=== PATIENT | male | born 1965 | race Caucasian/White ===

== ENCOUNTER 2019-03-18 18:52 | Emergency (ER) | payer OTHER ==
[2019-03-18 18:56] VITALS: TEMP 98.3; BMI 25.0
[2019-03-18] MEDS ORDERED: ALBUTEROL SO4 2.5/IPRATROPIUM 0.5 INH SOL 3 ML VIAL.NEB. NEB ONE ×2 (20:30→20:37)
[2019-03-18] MEDS ORDERED: ALBUTEROL SO4 0.083% IH SOL 2.5 MG/3 ML VIAL.NEB. NEB ONE ×2 (20:30→20:37)
[2019-03-18] MEDS ORDERED: methylPREDNISolone NA SUCC 125 MG/2 ML VIAL IVPUSH ONE (20:32)
[2019-03-18] MEDS ORDERED: methylPREDNISolone NA SUCC 125 MG/2 ML VIAL ONE (20:37)
[2019-03-18 20:59] LABS: BASO % 0.8 % (0-2.0); EOS % 5.6 % (0-4.5); HEMATOCRIT 44.4 % (35.4-49); HEMOGLOBIN 15.1 GM/dL (11.7-16.9); LYMPH % 22.6 % (8-40); MCH 31.9 pg (25.7-33.7); MCHC 33.9 g/dl (32.0-35.9); MEAN CELL VOLUME 94.2 fl (80-96); MONO % 10.7 % (3.8-10.2); NEUT % 60.3 % (42.8-82.8); PLATELET COUNT 202 K/MM3 (134-434); RBC 4.71 M/mm3 (4.00-5.60); RDW 14.4 % (11.9-15.9); WHITE BLOOD COUNT 9.4 K/mm3 (4.0-10.0)
[2019-03-18 21:02] LABS: PH,URINE 5.5 (5.0-8.0); URINE APPEARANCE CLEAR; URINE BILIRUBIN NEGATIVE (NEGATIVE); URINE COLOR YELLOW; URINE GLUCOSE (UA) NEGATIVE (NEGATIVE); URINE KETONE NEGATIVE (NEGATIVE); URINE LEUK ESTERASE NEGATIVE (NEGATIVE); URINE NITRITE NEGATIVE (NEGATIVE); URINE PROTEIN NEGATIVE (NEGATIVE); URINE UROBILINOGEN 0.2 mg/dL (0.2-1.0)
[2019-03-18 21:25] LABS: N-TERMINAL BNP 300.5 pg/ml (5-125)
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
[2019-03-18 22:00] LABS: ALBUMIN 3.7 g/dl (3.4-5.0); ALK PHOS 72 U/L (45-117); ANION GAP 9 MMOL/L (8-16); BILIRUBIN,TOTAL 0.4 mg/dL (0.2-1); BLOOD UREA NITROGEN 17.4 mg/dL (7-18); CALCIUM 8.5 mg/dL (8.5-10.1); CHLORIDE 108 mmol/L (98-107); CO2 25 mmol/L (21-32); CREATININE 0.8 mg/dL (0.55-1.3); GLUCOSE,RANDOM 83 mg/dL (74-106); POTASSIUM 4.6 mmol/L (3.5-5.1); SGOT/AST 17 U/L (15-37); SGPT/ALT 15 U/L (13-61); SODIUM 142 mmol/L (136-145)
[2019-03-18 22:06] VITALS: BP 143/63
[2019-03-18 22:34] VITALS: PULSE 60
--- NOTE | 2019-03-19 09:57 | EKG ---
Test Reason : Blood Pressure : / mmHG Vent. Rate : 063 BPM Atrial Rate : 063 BPM P-R Int : 120 ms QRS Dur : 088 ms QT Int : 432 ms P-R-T Axes : 010 042 062 degrees QTc Int : 442 ms SINUS RHYTHM WITH OCCASIONAL PREMATURE VENTRICULAR COMPLEXES NONSPECIFIC ST ABNORMALITY ABNORMAL ECG NO PREVIOUS ECGS AVAILABLE Confirmed by ZAY POND, ZAIN ([id number]) on 03/19/2019 9:57:21 AM Referred By: Confirmed By:ZAIN COLLAZO MD
== END 2019-03-18 23:00 | disposition home or self-care (01) ==
LOC: JER 18:52
PROC: 3E0F7GC Introduction of Other Therapeutic Substance into Respiratory Tract, Via Natural or Artificial Opening (ICD-10-PCS; principal; 2019-03-18)
PROC: 3E0F7GC Introduction of Other Therapeutic Substance into Respiratory Tract, Via Natural or Artificial Opening (ICD-10-PCS; 2019-03-18)
DX: J40 Bronchitis, not specified as acute or chronic (principal)
CPT/HCPCS: 36415; 71046-TC-FY; 80053; 81003; 82550; 82553; 83880; 84484; 85025; 93005; 93010; 94640; 99282-25

== ENCOUNTER 2019-04-05 13:57 | Emergency (ER) | payer OTHER ==
--- NOTE | 2019-04-05 14:02 | PDOC ---
Rapid Medical Evaluation Time Seen by Provider: 04/05/19 14:01 Medical Evaluation: Allergies Allergy/AdvReac Type Severity Reaction Status Date / Time No Known Allergies Allergy Verified 03/18/19 18:56 04/05/19 14:02 I have performed a brief in-person evaluation of this patient. The patient presents with a chief complaint of: Difficulty breathing and cough ( worse when he lays down) for 2 weeks. He was in the ED 2 wks ago, finished a course of prednisone and have been using a pump without improvement. Also c/o chest pain since last night. Stopped smoking 2 wks ago. Pertinent physical exam findings: Tachypnea with mild resp. distress. O2sat 98% I have ordered the following: EKG, CBC, CMP, cardiac enzymes, CXR The patient will proceed to the ED for further evaluation. 04/05/19 14:03 Discharge Disposition - Diagnosis Shortness of breath - Referrals - Patient Instructions - Post Discharge Activity
[2019-04-05 14:05] VITALS: TEMP 98.5; BMI 24.4
[2019-04-05] MEDS ORDERED: ALBUTEROL SO4 2.5/IPRATROPIUM 0.5 INH SOL 3 ML VIAL.NEB. NEB ONE ×4 (15:04→15:20)
[2019-04-05 15:14] LABS: BASO % 1.1 % (0-2.0); EOS % 4.6 % (0-4.5); HEMATOCRIT 41.6 % (35.4-49); HEMOGLOBIN 14.1 GM/dL (11.7-16.9); LYMPH % 25.2 % (8-40); MCH 32.1 pg (25.7-33.7); MEAN CELL VOLUME 94.4 fl (80-96); MEAN PLT VOLUME 9.2 fl (7.5-11.1); MONO % 10.7 % (3.8-10.2); NEUT % 58.4 % (42.8-82.8); PLATELET COUNT 234 K/MM3 (134-434); RBC 4.41 M/mm3 (4.00-5.60); RDW 14.8 % (11.9-15.9); WHITE BLOOD COUNT 7.6 K/mm3 (4.0-10.0)
[2019-04-05] MEDS ORDERED: ALBUTEROL SO4 0.083% IH SOL 2.5 MG/3 ML VIAL.NEB. NEB ONE (15:17)
[2019-04-05] MEDS ORDERED: methylPREDNISolone NA SUCC 125 MG/2 ML VIAL IVPB ONE (15:21)
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
[2019-04-05] MEDS ORDERED: methylPREDNISolone NA SUCC 125 MG/2 ML VIAL ONE (15:38)
[2019-04-05 15:46] LABS: ALBUMIN 3.5 g/dl (3.4-5.0); BILIRUBIN,TOTAL 0.4 mg/dL (0.2-1); BLOOD UREA NITROGEN 14.4 mg/dL (7-18); CALCIUM 8.9 mg/dL (8.5-10.1); CREATININE 0.9 mg/dL (0.55-1.3); MAGNESIUM 2.2 mg/dL (1.8-2.4); PHOSPHOROUS 3.4 mg/dL (2.5-4.9); POTASSIUM 4.4 mmol/L (3.5-5.1); TOT PROT 6.7 g/dl (6.4-8.2)
[2019-04-05] MEDS ORDERED: AZITHROMYCIN 500 MG TABLET PO ONE (16:56)
--- NOTE | 2019-04-05 17:00 | PDOC ---
Documentation entered by Sandy Troncoso SCRIBE, acting as scribe for Steve Alvarez MD. Steve Alvarez MD: This documentation has been prepared by the cindyibe, Sandy Troncoso SCRIBE, under my direction and personally reviewed by me in its entirety. I confirm that the documentation accurately reflects all work, treatment, procedures, and medical decision making performed by me. Attending Attestation - Resident Resident Name: Kallie Gabriel - ED Attending Attestation I have performed the following: I have examined & evaluated the patient, The case was reviewed & discussed with the resident, I agree w/resident's findings & plan, Exceptions are as noted - HPI HPI: 04/05/19 15:48 The patient is a 49-year-old male, with a past medical history of chronic back pain and current cigarette smoker, who presents to the ED with cough and shortness of breath. The patient was seen in the ED 2 weeks ago and was diagnosed with bronchitis. He was discharged with a course of prednisone and an albuterol inhaler. The patient's symptoms began to worsen after he ran out of his steroid medication. Last night the patient reports that he began to cough more frequently, which prompted his visit to the ED today. The patient denies fevers, chills, nausea, vomiting, diarrhea, or abdominal pain. Denies any chest pain or palpitations. Denies any weakness, dizziness, or changes in strength or sensation. Allergies: NKA Social History: Reports tobacco use. PCP: Dr. Zhou - Physicial Exam PE: 04/05/19 15:48 GENERAL: Awake, alert, and fully oriented, in no acute distress. HEAD: No signs of trauma EYES: PERRLA, EOMI, sclera anicteric, conjunctiva clear ENT: Auricles normal inspection, hearing grossly normal, nares patent, oropharynx clear without exudates. Moist mucosa NECK: Nontender, no stepoffs, Normal ROM, supple, no lymphadenopathy, JVD, or masses LUNGS: + diffuse expiratory wheezing, no rales or rhonchi HEART: Regular rate and rhythm, normal S1 and S2, no murmurs, rubs or gallops ABDOMEN: Soft, nontender, normoactive bowel sounds. No guarding, no rebound. No masses EXTREMITIES: Normal range of motion, no edema. No clubbing or cyanosis. No cords, erythema, or tenderness NEUROLOGICAL: Cranial nerves II through XII intact. 5/5 strength and sensation in all extremities, Normal speech, normal gait, normal cerebellar function SKIN: Warm, Dry, normal turgor, no rashes or lesions noted. - Medical Decision Making 04/05/19 17:01 54 M with SOB and cough. Wheezing on exam. Suspect COPD exacerbation. - Labs, - CXR - Nebs, steroids, Z-pack labs and CXR wnl Pt reassessed after nebs and steroids - now with complete resolution of cough and SOB> Repeat lung exam clear Pt is well appearing, with normal vitals. Clinically stable for DC at this time. I discussed the physical exam findings, ancillary test results and final diagnoses with the patient. I answered all of the patient's questions. The patient was satisfied with the care received and felt comfortable with the discharge plan and treatment plan. The patient agrees to follow up with the primary care physician within 24-72 hours.
[2019-04-05] MEDS ORDERED: AZITHROMYCIN 500 MG TABLET ONE (17:11)
--- NOTE | 2019-04-05 17:17 | EKG ---
Test Reason : Blood Pressure : / mmHG Vent. Rate : 057 BPM Atrial Rate : 057 BPM P-R Int : 162 ms QRS Dur : 104 ms QT Int : 416 ms P-R-T Axes : 055 069 065 degrees QTc Int : 404 ms SINUS BRADYCARDIA OTHERWISE NORMAL ECG WHEN COMPARED WITH ECG OF 18-MAR-2019 21:16, PREMATURE VENTRICULAR COMPLEXES ARE NO LONGER PRESENT ST NO LONGER DEPRESSED IN ANTERIOR LEADS Confirmed by CHELSIE POND, SHIELA ([id number]) on 04/05/2019 5:16:43 PM Referred By: Confirmed By:SHIELA HOLGUIN MD
[2019-04-05 17:26] VITALS: BP 128/60; PULSE 60
== END 2019-04-05 17:25 | disposition home or self-care (01) ==
LOC: JER 13:57
PROC: 3E0333Z Introduction of Anti-inflammatory into Peripheral Vein, Percutaneous Approach (ICD-10-PCS; principal; 2019-04-05)
PROC: 3E0F7GC Introduction of Other Therapeutic Substance into Respiratory Tract, Via Natural or Artificial Opening (ICD-10-PCS; 2019-04-05)
PROC: 3E0F7GC Introduction of Other Therapeutic Substance into Respiratory Tract, Via Natural or Artificial Opening (ICD-10-PCS; 2019-04-05)
PROC: 3E0F7GC Introduction of Other Therapeutic Substance into Respiratory Tract, Via Natural or Artificial Opening (ICD-10-PCS; 2019-04-05)
DX: J20.9 Acute bronchitis, unspecified (principal)
CPT/HCPCS: 36415; 71045-TC-FY; 80053; 82550; 83690; 83735; 84100; 84484; 85025; 93005; 93010; 99284-25